=== PATIENT | female | born 1955 | race Caucasian/White ===

== ENCOUNTER 2016-09-01 08:11 | Outpatient (CLI) | payer MEDICARE, BC | END 2016-09-01 08:12 | disposition home or self-care (01) | DX: Z00.00 Encounter for general adult medical examination without abnormal findings (principal); E11.9 Type 2 diabetes mellitus without complications; I10 Essential (primary) hypertension ==

== ENCOUNTER 2016-09-01 08:38 | Outpatient (CLI) | payer MEDICARE, BC ==
--- NOTE | 2016-09-02 16:16 | DEXA Report ---
DEXA SCAN: 09/01/2016 CLINICAL INDICATION: Postmenopausal. TECHNIQUE: Dual energy x-ray absorptiometry (DXA) was performed on a [employer] system. Regions measured are the AP spine, femoral neck, and, if needed, forearm. COMPARISON: None. In accordance with the International Society for Clinical Densitometry (ISCD) guidelines, data from previous exams may be reanalyzed using current recommendations and techniques. This is done to allow a more accurate basis for comparison with the current study. FINDINGS: The data for the lumbar spine is as follows: REGION BMD (g/cm/cm) T-SCORE Z-SCORE L1 1.368 2.0 2.3 L2 1.594 3.3 3.6 L3 1.648 3.7 4.0 L4 1.926 6.1 6.3 TOTAL 1.648 3.9 4.2 NOTE: All evaluable vertebrae are used for classification. The data for the forearm is as follows: REGION BMD (g/cm/cm) T-SCORE Z-SCORE 1/3 0.827 -0.6 0.7 NOTE: The 33% radius of the nondominant forearm is used for classification. * Denotes significant change at the 95% confidence level. Denotes dissimilar scan types or analysis methods. IMPRESSION: 1. THE WHO CLASSIFICATION BASED ON THE INTERNATIONAL REFERENCE STANDARD IS NORMAL. THE FRACTURE RISK IS NOT INCREASED. 2. LEFT FOREARM EVALUATION PERFORMED SECONDARY TO BILATERAL HIP REPLACEMENTS. RECOMMENDATION: Patients with diagnosis of osteoporosis or osteopenia should have regular bone mineral density assessment. For those eligible for Medicare, routine testing is allowed once every 2 years. Testing frequency can be increased for patients who have rapidly progressing disease or for those who are receiving medical therapy to restore bone mass. COMMENT: World Health Organization (WHO) definitions for osteoporosis and osteopenia: NORMAL BMD: T-score at -1.0 or higher, fracture risk is low. OSTEOPENIA BMD: T-score between -1.0 and -2.5, fracture risk is increased. OSTEOPOROSIS BMD: T-score at -2.5 or lower, fracture risk high. National Osteoporosis Foundation recommends: 1. Obtain adequate dietary calcium (at least 1200 mg per day) and vitamin D (400 -800 international units per day). 2. Participate, as appropriate, in regular weightbearing and muscle- strengthening exercise. 3. Avoid tobacco use and reduce alcohol and caffeine intake. 4. For more detailed information see the website at www.NOF.org. MTDD
== END 2016-09-01 08:39 | disposition home or self-care (01) ==
LOC: DI 08:38
PROVIDERS: ATTEND Family Medicine
DX: Z13.820 Encounter for screening for osteoporosis (principal); Z78.0 Asymptomatic menopausal state; Z00.00 Encounter for general adult medical examination without abnormal findings; E11.9 Type 2 diabetes mellitus without complications; I10 Essential (primary) hypertension; Z96.643 Presence of artificial hip joint, bilateral
CPT/HCPCS: 36415; 77080; 77081; 80053; 80061; 83036; 84443; 85025

== ENCOUNTER 2016-09-01 08:40 | Outpatient (CLI) | payer MEDICARE, BC ==
--- NOTE | 2016-09-02 16:49 | Mammography Report ---
DIGITAL BILATERAL SCREENING MAMMOGRAM: 09/01/2016 HISTORY: A 61-year-old for screening. COMPARISON: 07/2014, 01/2010, 12/2008, 11/2007, 11/2006. TECHNIQUE: Routine CC and MLO projections were obtained of the breasts. FINDINGS: Scattered fibroglandular tissue is present within the breasts. There are no dominant sheeba s, suspicious microcalcifications, or secondary signs of malignancy. In comparison to the previous st udies, there are no significant changes. Stable Intramammary lymph nodes. ASSESSMENT: NO MAMMOGRAPHIC EVIDENCE OF MALIGNANCY. NO SIGNIFICANT INTERVAL CHANGES. RECOMMENDATION: Screening mammography is recommended annually. BI-RADS category 2 - benign. STANDARD QUALIFYING STATEMENTS 1. This examination was reviewed with the aid of Computed-Aided Detection (CAD). 2. A negative or benign imaging report should not delay biopsy if clinically suspicious findings are present. Consider surgical consultation if warranted. More than 5% of cancers are not identified by i maging. 3. Dense breasts may obscure an underlying neoplasm. JOB #: [id number] EXT JOB #:[id number]
== END 2016-09-01 08:41 | disposition home or self-care (01) ==
LOC: DI 08:40
PROVIDERS: ATTEND Family Medicine
DX: Z12.31 Encounter for screening mammogram for malignant neoplasm of breast (principal)
CPT/HCPCS: 77067

== ENCOUNTER 2016-11-08 18:30 | Emergency (ER) | payer MEDICARE, BC ==
[2016-11-08 19:20] LABS: BILIRUBIN,URINE NEGATIVE (NEGATIVE)
[2016-11-08 19:36] LABS: UA w/ MICROSCOPIC CHARGE YES
[2016-11-08 19:42] LABS: UR CULTURE IF IND NOT INDICATED
[2016-11-08] MEDS ORDERED: ACETAMINOPHEN 500 MG TABLET PO ONE (20:25)
[2016-11-08] MEDS ORDERED: ONDANSETRON ODT 4 MG TABLET ONE (20:26)
[2016-11-08] MEDS ORDERED: CEPHALEXIN 250 MG CAPSULE PO ONE (20:26)
[2016-11-08] MEDS: ONDANSETRON ODT 4 MG TABLET TL STA (20:29)
[2016-11-08] MEDS: CEPHALEXIN 250 MG CAPSULE PO STA (20:29)
[2016-11-08] MEDS: ACETAMINOPHEN 500 MG TABLET PO STA (20:29)
--- NOTE | 2016-11-08 20:31 | ED Physician Documentation ---
PD HPI BACK PAIN - Stated complaint Stated Complaint: LOWER BACK PX - Chief complaint Chief Complaint: Back Pain - History obtained from History obtained from: Patient - History of Present Illness Timing - onset: Today Timing - details: Gradual onset, Still present Location: Left Quality: Pain, Aching Associated symptoms: No: Fever, Weakness Similar symptoms before: No diagnosis Recently seen: Not recently seen - Additional information Additional information: Patient is a 61 year old female who is presenting to the emergency department for low back pain. Patient states that it started today and has become progressively worse. Patient complained of mild nausea but denies fever, chills , or vomiting. Review of Systems Constitutional: denies: Fever, Chills Eyes: denies: Loss of vision, Decreased vision Ears: denies: Ear pain Nose: denies: Rhinorrhea / runny nose, Congestion Throat: denies: Sore throat Cardiac: denies: Chest pain / pressure, Palpitations Respiratory: denies: Cough, Wheezing GI: reports: Abdominal Pain, Nausea. denies: Vomiting, Constipation, Diarrhea : reports: Frequency. denies: Dysuria, Hematuria Skin: denies: Rash, Lesions Musculoskeletal: reports: Back pain. 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 : Frequency HEENT: None Psych: Anxiety Musculoskeletal: Osteoarthritis Derm: None - Past Surgical History General: Cholecystectomy Ortho: Hip replacement /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 - Present Medications Home Medications: Ambulatory Orders Medication Instructions Recorded Confirmed Aspirin Chewable [[facility] [place] 2 tab PO DAILY 11/08/16 11/08/16 Aspirin] Atenolol 50 mg PO DAILY 11/08/16 11/08/16 Cephalexin [Keflex] 500 mg PO Q8H #21 capsule 11/08/16 Ondansetron Odt [Zofran] 4 mg TL Q6H PRN #14 tablet 11/08/16 Prazosin [Minipress] 1 tab PO DAILY 11/08/16 11/08/16 - Allergies Allergies/Adverse Reactions: Allergies Allergy/AdvReac Type Severity Reaction Status Date / Time No Known Drug Allergies Allergy Verified 11/08/16 19:12 - Social History Does the pt smoke?: No Smoking Status: Former smoker Does the pt drink ETOH?: No Does the pt have substance abuse?: No - Immunizations Immunizations are current?: Yes - POLST Patient has POLST: No PD ED PE NORMAL - Vitals Vital signs reviewed: Yes - General General: Alert and oriented X 3, No acute distress, Well developed/nourished - HEENT HEENT: Atraumatic, PERRL, Pharynx benign - Neck Neck: No JVD - Cardiac Cardiac: RRR, No murmur - Respiratory Respiratory: No respiratory distress - Abdomen Abdomen: Soft - Derm Derm: Normal color, Warm and dry, No rash - Extremities Extremities: No deformity, No tenderness to palpate, No edema, No calf tenderness / cord - Neuro Neuro: Alert and oriented X 3, 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 No: Rebound, Guarding - Back Back: CVA TTP left Results - Vitals Vitals: Vital Signs - 24 hr 11/08/16 11/08/16 18:38 20:45 Temperature 36.6 C Heart Rate 74 63 Respiratory 18 16 Rate Blood Pressure 169/70 H 162/83 H O2 Saturation 96 95 Oxygen O2 Source Room air - Labs Labs: Laboratory Tests 11/08/16 18:35 Urine Color YELLOW Urine Clarity CLOUDY Urine pH 5.0 Ur Specific [place] >=1.030 H Urine Protein NEGATIVE Urine Glucose (UA) NEGATIVE Urine Ketones TRACE Urine Occult Blood LARGE H Urine Nitrite NEGATIVE Urine Bilirubin NEGATIVE Urine Urobilinogen 0.2 (NORMAL) Ur Leukocyte Esterase SMALL H Urine RBC 0-5 Urine WBC 6-10 H Ur Squamous Epith Cells MANY Squamous H Urine Crystals >50 Calcium Oxalate Urine Bacteria Many H Urine Mucus Few Strands Ur Microscopic Review INDICATED Urine Culture Comments NOT INDICATED PD MEDICAL DECISION MAKING - ED course Complexity details: reviewed old records, reviewed results, re-evaluated patient , considered differential, d/w patient ED course: Patient was seen and examined at bedside. Urine was collected and was consistent with urinary tract infection. Due to her systemic symptoms patient was treated as pyelonephritis. Patient was treated with zofran and keflex. Patient was able to tolerate PO, without any vomiting. Patient was not ill appearing and was appropriate for a trial of outpatient therapy. Departure - Departure Disposition: 01 Home, Self Care Clinical Impression: Pyelonephritis Condition: Good Instructions: ED Kidney Infec Female Follow-Up: Sahara Owens MD [Primary Care Provider] - Within 3 Days (re-evaluate for uti symptoms ) Prescriptions: Cephalexin [Keflex] 500 mg PO Q8H #21 capsule Ondansetron Odt [Zofran] 4 mg TL Q6H PRN #14 tablet PRN Reason: Nausea / Vomiting Comments: Your symptoms today are being caused by a kidney infection. It is important that you take your entire course of antibiotics. You should also make sure that you stay well hydrated. You can take tylenol as needed for pain. You should call your pmd tomorrow for re-evaluation this week. You should return to the emergency department for uncontrollable nausea, vomiting, fevers, new worse or uncontrollable symptoms. Discharge Date/Time: 11/08/16 20:57
[2016-11-08 20:56] VITALS: BP 162/83
== END 2016-11-08 20:57 | disposition home or self-care (01) ==
LOC: ED 18:30
DX: N12 Tubulo-interstitial nephritis, not specified as acute or chronic (principal); I10 Essential (primary) hypertension; E78.00 Pure hypercholesterolemia, unspecified; E11.9 Type 2 diabetes mellitus without complications; M19.90 Unspecified osteoarthritis, unspecified site; Z79.82 Long term (current) use of aspirin; Z87.891 Personal history of nicotine dependence
CPT/HCPCS: 81001; 81003; 87086; 99283

== ENCOUNTER 2017-10-04 15:12 | Outpatient (CLI) | payer MEDICARE, BC ==
[2017-10-04 15:47] LABS: HEMOGLOBIN A1C 0.73 g/dL; HEMOGLOBIN A1C % 6.3 % (4.6-6.2)
[2017-10-04 15:49] LABS: ALBUMIN 4.1 g/dL (3.2-5.5); ALBUMIN/GLOBULIN RATIO 1.2 (1.0-2.2); ALKALINE PHOSPHATASE 87 IU/L (42-121); ALT ALANINE AMINOTRANSFERASE 23 IU/L (10-60); AST ASPARTATE AMINOTRANSFERASE 22 IU/L (10-42); BILIRUBIN,TOTAL 0.8 mg/dL (0.2-1.0); BUN - BLOOD UREA NITROGEN 17 mg/dL (6-20); CARBON DIOXIDE - CO2 24 mmol/L (21-32); CHLORIDE 102 mmol/L (101-111); CHOL/HDL RATIO 4.5 (<4.4); CHOLESTEROL 138 mg/dL; CREATININE 0.7 mg/dL (0.4-1.0); GFR - MDRD 84 (>89); GLUCOSE 126 mg/dL (70-100); HDL CHOLESTEROL 31 mg/dL; LDL CHOLESTEROL,CALCULATED 79 mg/dL; LDL/HDL RATIO 2.5 (<4.4); SODIUM 137 mmol/L (135-145); TOTAL PROTEIN 7.6 g/dL (6.7-8.2); VLDL CHOLESTEROL 28 mg/dL
[2017-10-04 15:50] LABS: CREATININE,URINE 280.5 mg/dL; MICROALBUMIN,URINE 1.4 mg/dL (0-300.0)
== END 2017-10-04 15:13 | disposition home or self-care (01) ==
LOC: LAB 15:12
PROVIDERS: ATTEND Family Medicine
DX: E11.9 Type 2 diabetes mellitus without complications (principal)
CPT/HCPCS: 36415; 80053; 80061; 82043; 82570; 83036; 83721

== ENCOUNTER 2017-10-11 13:30 | Outpatient (CLI) | payer MEDICARE, BC ==
--- NOTE | 2017-10-12 19:57 | Mammography Report ---
DIGITAL SCREENING MAMMOGRAM: 10/11/2017 INDICATION: A 62-year-old for screening. TECHNIQUE: Routine CC and MLO projections were obtained of the breasts. COMPARISON: 08/2016, 07/2014, 01/2010 FINDINGS: The breasts again demonstrate scattered fibroglandular densities bilaterally. Intramammary lymph nodes are stable. No suspicious masses, clustered microcalcifications, or regions of architectural distortion are identified. IMPRESSION: BENIGN FINDINGS. RECOMMENDATION: Routine annual screening unless otherwise clinically indicated. BIRADS CATEGORY - 2 BENIGN FINDINGS. STANDARD QUALIFYING STATEMENTS: 1. This examination was reviewed with the aid of Computer-Aided Detection (CAD). 2. A negative or benign imaging report should not delay biopsy if clinically suspicious findings are present. Consider surgical consultation if warranted. More than 5% of cancers are not identified by imaging. 3. Dense breasts may obscure an underlying neoplasm. TD: 10/12/2017 19:57
== END 2017-10-11 13:31 | disposition home or self-care (01) ==
LOC: DI 13:30
PROVIDERS: ATTEND Family Medicine
DX: Z12.31 Encounter for screening mammogram for malignant neoplasm of breast (principal)
CPT/HCPCS: 77067

== ENCOUNTER 2020-02-05 12:10 | Outpatient (CLI) | payer MEDICARE, OTHER ==
--- NOTE | 2020-02-06 08:31 | Mammography Report ---
BILATERAL DIGITAL SCREENING MAMMOGRAM 3D/2D: 02/05/2020 CLINICAL: Routine screening. Comparison is made to exams dated: 10/11/2017 mammogram, 08/22/2016 mammogram, and 07/30/2014 mammogram - [facility]. The tissue of both breasts is predominantly fatty. No significant masses, calcifications, or other findings are seen in either breast. There has been no significant interval change. IMPRESSION: NEGATIVE There is no mammographic evidence of malignancy. A 1 year screening mammogram is recommended. This exam was interpreted at Station ID: [id number]. NOTE: For mammograms, a report in lay terms will be sent to the patient. Approximately 15% of breast malignancies will not be visualized mammographically. In the management of a palpable breast mass, a negative mammogram must not discourage biopsy of a clinically suspicious lesion. Electronically Signed By: Lizzette levine/josé luis:02/05/2020 15:10:01 ACR BI-RADS Category 1: Negative 3341F A -Almost entirely fatty 1 Mammogram [id number] 1 year screening B
== END 2020-02-05 12:11 | disposition home or self-care (01) ==
LOC: DI.N 12:10
DX: Z12.31 Encounter for screening mammogram for malignant neoplasm of breast (principal)
CPT/HCPCS: 77063; 77067